=== PATIENT | male | born 1975 | race Caucasian/White ===

== ENCOUNTER 2017-12-19 15:42 | Outpatient (CLI) | payer BC, SELFPAY ==
--- NOTE | 2017-12-19 14:57 | DI.RAD_ITS ---
SYMPTOMS/DIAGNOSIS: COUGH, R05 PA AND LATERAL CHEST: There are no prior comparison exams. The heart size is normal. The lungs are well inflated and clear. No infiltrate or effusion is seen. IMPRESSION: Negative chest x-ray.
== END 2017-12-19 16:02 ==
PROVIDERS: PCP Nurse Practitioner Family; Visit Provider Nurse Practitioner Family
DX: R05 Cough (principal)
CPT/HCPCS: 71046

== ENCOUNTER 2018-01-10 01:36 | Outpatient (CLI) | payer BC, SELFPAY ==
--- NOTE | 2018-01-10 | PFT_ITS ---
PULMONARY FUNCTION TEST REPORT Patient identification - Emanuel Burden DATE OF - 1975 DATE OF SERVICE - 01/10/2018 REQUESTING PROVIDER - Chayo Back INTERPRETATION OF STUDY Spirometry shows no evidence of obstructive airways disease. No bronchodilator response. LUNG VOLUMES - Lung volumes show no evidence of restriction. DIFFUSION CAPACITY- Elevated. AIRWAY RESISTANCE - Normal. IMPRESSION Isolated elevated diffusion capacity. This can be seen in underlying asthma. Therefore, if the diagnosis of asthma is in question, proceeding with methacholine challenge testing may prove to be useful. Clinical correlation recommended. Ellen Robbins M.D. GINGER/josi T - 01/11/2018
[2018-01-10] MEDS: Inhaler, Assist Device 1 EACH MC (08:53)
[2018-01-10] MEDS: Albuterol HFA 18 GM 200 PUFF INH IH (08:54)
== END 2018-01-10 01:56 ==
PROVIDERS: PCP Nurse Practitioner Family; Visit Provider Nurse Practitioner Family
DX: R05 Cough (principal); R06.02 Shortness of breath
CPT/HCPCS: 94060; 94150; 94726; 94729

== ENCOUNTER 2018-08-29 14:01 | Outpatient (REF) | payer BC, SELFPAY ==
[2018-08-29 22:34] LABS: Anion Gap 12.7 mmol/L (3-11); BUN 18 mg/dL (7-18); CO2 27.3 mmol/L (21.0-32.0); CREATININE 0.85 mg/dL (0.70-1.30); Calcium 9.8 mg/dL (8.5-10.1); Chloride 101 mmol/L (98-107); Glucose 115 mg/dL (70-100); Potassium 4.6 mmol/L (3.5-5.1); Sodium 141 mmol/L (136-145)
== END 2018-08-29 14:21 ==
LOC: NCHCN 14:01
PROVIDERS: PCP Nurse Practitioner Family; Visit Provider Nurse Practitioner Family
DX: I10 Essential (primary) hypertension (principal); I47.1 Supraventricular tachycardia; J45.20 Mild intermittent asthma, uncomplicated; J31.0 Chronic rhinitis; E66.9 Obesity, unspecified
CPT/HCPCS: 80048

== ENCOUNTER 2019-11-29 15:00 | Outpatient (REF) | payer BC, SELFPAY ==
[2019-11-29 20:47] LABS: HCT 48.7 % (40.0-50.0); HGB 15.7 g/dL (13.5-17.5); MCH 29.6 pg (27.0-33.0); MCHC 32.2 % (32.0-36.0); MCV 91.9 fL (80-95); MPV 9.2 fL (8.0-11.0); Platelet Count 365 10^3/uL (130-400); RDW 12.1 % (11.8-14.1); WBC 9.28 10^3/uL (4.4-10.8)
[2019-11-29 21:04] LABS: ALT 49 U/L (16-63); AST 30 U/L (15-37); Albumin 4.6 g/dL (3.4-5.0); Alkaline Phosphatase 54 U/L (46-116); Anion Gap 6.2 mmol/L (3-11); BUN 18 mg/dL (7-18); Bilirubin, Total 0.8 mg/dL (0.2-1.0); CO2 30.8 mmol/L (21.0-32.0); Calcium 9.8 mg/dL (8.5-10.1); Calculated LDL 201 mg/dL (<100); Chloride 102 mmol/L (98-107); Cholesterol 280 mg/dL (<200); Glucose 99 mg/dL (74-106); HDL Cholesterol 50 mg/dL (40-60); Potassium 4.9 mmol/L (3.5-5.1); Sodium 139 mmol/L (136-145); Total Protein 7.9 g/dL (6.4-8.2); Triglyceride 149 mg/dL (<150)
== END 2019-11-29 15:20 ==
LOC: NCHCN 15:00
PROVIDERS: PCP Nurse Practitioner Family; Visit Provider Family Medicine
DX: Z00.00 Encounter for general adult medical examination without abnormal findings (principal); I10 Essential (primary) hypertension; E78.5 Hyperlipidemia, unspecified
CPT/HCPCS: 80053; 80061; 85027

== ENCOUNTER 2020-03-03 17:41 | Outpatient (REF) | payer BC, SELFPAY ==
[2020-03-03 14:22] LABS: ALT 44 U/L (16-63); AST 23 U/L (15-37); Calculated LDL 81 mg/dL (<100); Cholesterol 160 mg/dL (<200); HDL Cholesterol 53 mg/dL (40-60); Triglyceride 130 mg/dL (<150)
== END 2020-03-03 18:01 ==
LOC: NCHCN 17:41
PROVIDERS: PCP Nurse Practitioner Family; Visit Provider Family Medicine
DX: Z00.00 Encounter for general adult medical examination without abnormal findings (principal); Z13.220 Encounter for screening for lipoid disorders
CPT/HCPCS: 80061; 84450; 84460

== ENCOUNTER 2021-09-25 19:12 | Outpatient (REF) | payer BC, SELFPAY ==
[2021-09-25 16:34] LABS: ALT 46 U/L (16-63); AST 29 U/L (15-37); Albumin 4.4 g/dL (3.4-5.0); Alkaline Phosphatase 57 U/L (46-116); Anion Gap 10.6 mmol/L (3-11); BUN 19 mg/dL (7-18); Bilirubin, Total 0.7 mg/dL (0.2-1.0); CO2 24.4 mmol/L (21.0-32.0); CREATININE 0.9 mg/dL (0.70-1.30); Calcium 9.3 mg/dL (8.5-10.1); Calculated LDL 93 mg/dL (<100); Chloride 102 mmol/L (98-107); Cholesterol 157 mg/dL (<200); Glucose 108 mg/dL (74-106); HDL Cholesterol 42 mg/dL (40-60); Potassium 4.4 mmol/L (3.5-5.1); Sodium 137 mmol/L (136-145); Total Protein 7.8 g/dL (6.4-8.2); Triglyceride 111 mg/dL (<150)
== END 2021-09-25 19:13 | disposition home or self-care (01) ==
LOC: NCHCN 19:12
PROVIDERS: PCP Nurse Practitioner Family; Visit Provider Nurse Practitioner Family
DX: E78.5 Hyperlipidemia, unspecified (principal); I47.1 Supraventricular tachycardia; I10 Essential (primary) hypertension; E66.9 Obesity, unspecified
CPT/HCPCS: 80053; 80061

== ENCOUNTER 2022-09-23 18:57 | Outpatient (REF) | payer BC, SELFPAY ==
[2022-09-23 17:23] LABS: Anion Gap 9.2 mmol/L (3-11); BUN 14 mg/dL (7-18); CO2 24.8 mmol/L (21.0-32.0); CREATININE 0.8 mg/dL (0.70-1.30); Calcium 9.8 mg/dL (8.5-10.1); Calculated LDL 94 mg/dL (<100); Chloride 102 mmol/L (98-107); Cholesterol 156 mg/dL (<200); Estimated GFR 109.17 (mL/min/1.73m2); Glucose 111 mg/dL (74-106); HDL Cholesterol 42 mg/dL (40-60); Potassium 4.7 mmol/L (3.5-5.1); Sodium 136 mmol/L (136-145); Triglyceride 100 mg/dL (<150)
== END 2022-09-23 18:58 | disposition home or self-care (01) ==
LOC: NCHCN 18:57
PROVIDERS: PCP Nurse Practitioner Family; Visit Provider Nurse Practitioner Family
DX: Z86.010 Personal history of colon polyps (principal); E78.5 Hyperlipidemia, unspecified; J31.0 Chronic rhinitis; I47.1 Supraventricular tachycardia; I10 Essential (primary) hypertension; E66.9 Obesity, unspecified
CPT/HCPCS: 80048; 80061

== ENCOUNTER 2023-11-08 19:18 | Outpatient (REF) | payer BC, SELFPAY ==
[2023-11-08 17:05] LABS: Hemoglobin A1C 5.6 % (<5.7)
[2023-11-08 21:09] LABS: ALT 35 U/L (16-63); AST 20 U/L (15-37); Albumin 4.3 g/dL (3.4-5.0); Alkaline Phosphatase 54 U/L (46-116); BUN 19 mg/dL (7-18); CREATININE 0.8 mg/dL (0.70-1.30); Calcium 9.4 mg/dL (8.5-10.1); Calculated LDL 92 mg/dL (<100); Chloride 102 mmol/L (98-107); Cholesterol 168 mg/dL (<200); Estimated GFR 108.49 (mL/min/1.73m2); Glucose 89 mg/dL (74-106); HDL Cholesterol 56 mg/dL (40-60); Potassium 4.2 mmol/L (3.5-5.1); Sodium 140 mmol/L (136-145); Total Protein 7.4 g/dL (6.4-8.2); Triglyceride 100 mg/dL (<150)
== END 2023-11-08 19:19 | disposition home or self-care (01) ==
LOC: NCHCN 19:18
PROVIDERS: PCP Nurse Practitioner Family; Visit Provider Nurse Practitioner Family
DX: I10 Essential (primary) hypertension (principal); E66.9 Obesity, unspecified; Z13.1 Encounter for screening for diabetes mellitus
CPT/HCPCS: 80053; 80061; 83036